=== PATIENT | female | born 1980 | race African-American/Black ===

== ENCOUNTER 2024-07-05 08:37 | Emergency (ER) | payer SELFPAY ==
[~2024-07-05] VITALS: Ht 170.2 cm; Wt 110.0 kg
[~2024-07-05 08:37] MED LIST: ALBUTEROL; ALPR1TAB2; HYDR-3927; TYLENOL
[2024-07-05] MEDS ORDERED: MIDAZOLAM HCL 2 MG/2 ML VIAL IV ONE (09:00)
[2024-07-05] MEDS: HALOPERIDOL LACTATE 5MG/ML VIAL IM ONE (09:03)
[2024-07-05] MEDS: MIDAZOLAM HCL 2 MG/2 ML VIAL IM NR (09:03)
[2024-07-05 09:55] VITALS: O2SAT 100
[2024-07-05 10:40] VITALS: BP 185/115; TEMP 98.6
[2024-07-05 12:04] VITALS: PULSE 89; RESP 18
== END 2024-07-05 12:35 | disposition home or self-care (01) ==
LOC: ER 08:53
DX: T40.2X1A Poisoning by other opioids, accidental (unintentional), initial encounter (principal); R45.1 Restlessness and agitation; Y92.89 Other specified places as the place of occurrence of the external cause
CPT/HCPCS: 96372; 99285; J1630; J2250; Z7610 ×4

== ENCOUNTER 2025-02-23 22:49 | Emergency (ER) | payer SELFPAY ==
[~2025-02-23] VITALS: Ht 165.1 cm; Wt 91.0 kg
[2025-02-23 22:54] VITALS: TEMP 36.8; O2SAT 99
[2025-02-23 23:28] VITALS: BP 175/119; PULSE 92; RESP 15; O2SAT 99
[2025-02-24] MEDS: SODIUM CHLORIDE 0.9% 1,000 ML IV ONE (00:05)
[2025-02-24] MEDS: ONDANSETRON HCL 4MG/2ML INJ IV ONE (00:05)
[2025-02-24 00:11] LABS: BASOPHILS % 0.9 % (0.0-2.0); EOSINOPHILS % 1.1 % (0.0-5.0); HEMATOCRIT. 46.2 % (36.0-48.0); HEMOGLOBIN. 14.4 g/dL (12.0-16.0); LYMPHOCYTES % 26.8 % (20.0-50.0); MEAN CORPUSCULAR HEMOGLOBIN 25.2 pg (28.0-32.0); MEAN CORPUSCULAR HGB CONC 31.2 g/dL (31.0-37.0); MEAN CORPUSCULAR VOLUME 80.6 fL (81.0-99.0); MEAN PLATELET VOLUME 9.4 fl (7.4-10.4); MONOCYTES % 5.5 % (2.0-8.0); NEUTROPHILS % 65.7 % (40.0-76.0); PLATELET 349 x1000/uL (130-400); RED BLOOD CELL COUNT 5.74 mill/uL (4.2-5.4)
[2025-02-24 00:18] LABS: CHLORIDE 105 mEq/L (98-107); POTASSIUM 3.9 mEq/L (3.5-5.1); SODIUM 139 mEq/L (136-145)
[2025-02-24 00:19] LABS: CALCIUM 10.7 mg/dL (8.7-10.4); CARBON DIOXIDE 25 mEq/L (21-32)
[2025-02-24 00:24] LABS: CREATININE 0.9 mg/dL (0.6-1.0); GLUCOSE 88 mg/dL (70-105); UREA NITROGEN BLOOD 11 mg/dL (9-23)
[2025-02-24 00:35] LABS: TROPONIN I HIGH SENSITIVITY < 4 ng/L (3.0-34)
[2025-02-24 00:38] LABS: HCG SCREEN NEGATIVE
[2025-02-24 01:54] LABS: TROPONIN I HIGH SENSITIVITY < 4 ng/L (3.0-34)
== END 2025-02-24 02:30 | disposition left against medical advice (07) ==
LOC: ER 22:49
DX: R42 Dizziness and giddiness (principal); F17.200 Nicotine dependence, unspecified, uncomplicated; I10 Essential (primary) hypertension; Z88.5 Allergy status to narcotic agent
CPT/HCPCS: 99285; 71045; 80048; 84703; 85025; 84484 ×2; 36415 ×2; 93005; 96374; 96361; J7030; J2405